=== PATIENT | male | born 1965 | race Asian ===

== ENCOUNTER 2018-11-26 12:18 | Day surgery (SDC) | payer BC ==
[2018-11-26] MEDS ORDERED: PROPOFOL 20 ML ×2 (15:53→17:21)
== END 2018-11-26 17:51 | disposition home or self-care (01) ==
LOC: GIL 12:18
DX: D12.4 Benign neoplasm of descending colon (principal); K64.8 Other hemorrhoids; I85.00 Esophageal varices without bleeding; D12.5 Benign neoplasm of sigmoid colon; K20.9 Esophagitis, unspecified; K29.70 Gastritis, unspecified, without bleeding
CPT/HCPCS: 43239; 88305; 88312